=== PATIENT | female | born 1950 | race Caucasian/White ===

== ENCOUNTER 2021-07-10 11:29 | Observation (INO) | payer BC, MEDICARE, OTHER ==
[2021-07-10] MEDS ORDERED: Diltiazem 25 MG/5 ML SDV IVPUSH ONE (12:01)
[2021-07-10] MEDS: Sodium Chloride 0.9% 10 ML Syringe FLUSH PRN ×2 (12:14→12:48)
[2021-07-10 12:23] LABS: ANION GAP 6.9 meq/L (7-15); CHLORIDE,CL 106 mmol/L (98-107); SODIUM,NA 142 mmol/L (136-145)
[2021-07-10] MEDS ORDERED: Furosemide 40 MG/4 ML VIAL IVPUSH ONE (12:33)
[2021-07-10] MEDS: Metoprolol Tartrate 50 MG Tab PO SCH ×2 (13:13→19:41)
[2021-07-10] MEDS ORDERED: Bisacodyl 5 MG Tab PO PRN (13:47)
[2021-07-10] MEDS ORDERED: Ondansetron 4 MG Tab.DIS PO PRN (14:00)
[2021-07-10] MEDS ORDERED: Ondansetron 4 MG/2 ML SDV IVPUSH PRN (14:00)
[2021-07-10] MEDS ORDERED: Acetaminophen 325 MG Tab PO PRN (14:00)
[2021-07-10] MEDS: Warfarin 5 MG Tab PO SCH (20:44)
[2021-07-11] MEDS: Metoprolol Tartrate 50 MG Tab PO SCH ×4 (00:34→19:44)
[2021-07-11] MEDS: Venlafaxine 75 MG Cap.ER PO SCH (07:41)
[2021-07-11] MEDS: Warfarin 5 MG Tab PO SCH (07:41)
[2021-07-11] MEDS: Aspirin 81 MG Tab.Chew PO SCH (07:42)
[2021-07-11] MEDS: Furosemide 20 MG Tab PO SCH (07:42)
[2021-07-11] MEDS: Ascorbic Acid 500 MG Tab PO SCH (07:42)
[2021-07-11] MEDS: Lisinopril 5 MG Tab PO SCH (07:43)
[2021-07-11 07:56] LABS: ANION GAP 6.1 meq/L (7-15)
[2021-07-11] MEDS ORDERED: Furosemide 40 MG/4 ML VIAL IVPUSH ONE (16:17)
[2021-07-11] MEDS: Sodium Chloride 0.9% 10 ML Syringe FLUSH PRN (16:28)
[2021-07-12] MEDS: Metoprolol Tartrate 50 MG Tab PO SCH ×3 (01:27→12:16)
[2021-07-12] MEDS: Venlafaxine 75 MG Cap.ER PO SCH (08:22)
[2021-07-12] MEDS: Furosemide 20 MG Tab PO SCH (08:22)
[2021-07-12] MEDS: Aspirin 81 MG Tab.Chew PO SCH (08:23)
[2021-07-12] MEDS: Lisinopril 5 MG Tab PO SCH (08:23)
[2021-07-12] MEDS: Warfarin 5 MG Tab PO SCH (08:23)
[2021-07-12] MEDS: Ascorbic Acid 500 MG Tab PO SCH (08:24)
[2021-07-12 08:33] LABS: ANION GAP 8.9 meq/L (7-15); CHLORIDE,CL 103 mmol/L (98-107); SODIUM,NA 139 mmol/L (136-145)
== END 2021-07-12 16:30 | disposition home or self-care (01) ==
LOC: LL.ED 11:29 → LL.MS 13:17 → INTOOBSV 13:44 → UNDOADMOB 13:44 → LL.MS 13:44
PROVIDERS: ADMIT Physician Assistant; ATTEND Physician Assistant
DX: I48.0 Paroxysmal atrial fibrillation (principal); K21.9 Gastro-esophageal reflux disease without esophagitis; F41.9 Anxiety disorder, unspecified; F32.A Depression, unspecified; I11.0 Hypertensive heart disease with heart failure; I50.9 Heart failure, unspecified; E78.00 Pure hypercholesterolemia, unspecified; I48.91 Unspecified atrial fibrillation; Z90.711 Acquired absence of uterus with remaining cervical stump; Z98.890 Other specified postprocedural states; Z79.01 Long term (current) use of anticoagulants; Z79.82 Long term (current) use of aspirin; Z79.899 Other long term (current) drug therapy
CPT/HCPCS: 36415; 71046; 80048; 80053; 81001; 83735; 83880; 84443; 84484; 85025; 85027; 85379; 85610; 87086; 93005; 96374; 96375; 99285; A9270; G0378; J1940; J3490